=== PATIENT | male | born 1970 | race Caucasian/White ===

== ENCOUNTER 2017-08-27 05:19 | Day surgery (SDC) | payer OTHER ==
[~2017-08-27] VITALS: Ht 180.3 cm; Wt 95.0 kg
[~2017-08-27 05:19] MED LIST: CLOP75 PO; CeFAZolin 2 GM/DEXTROSE 50 ML IV ONE; GABA-531 PO; LIDOCAINE HCL/PF 1% 2 ML VIAL ID ONE; METO50 PO; OXYC20 PO; RINGERS SOLUTION,LACTATED 1,000 ML IV ONE; RINGERS SOLUTION,LACTATED 1,000 ML IV SCH; SERT100T12 PO
[2017-08-27] MEDS ORDERED: FentaNYL CITRATE-PF 100 MCG/2 ML VIAL IVP ONE (05:20)
[2017-08-27] MEDS ORDERED: DEXAMETHASONE SOD PHOS 4 MG/ML VIAL IVP ONE (05:20)
[2017-08-27] MEDS ORDERED: MIDAZOLAM HCL 2 MG/2 ML VIAL IVP ONE (05:20)
[2017-08-27] MEDS ORDERED: ONDANSETRON HCL 4 MG/2 ML VIAL IVP ONE (05:20)
[2017-08-27] MEDS ORDERED: PROPOFOL 1% 20 ML VIAL IVP ONE (05:20)
[2017-08-27] MEDS ORDERED: LIDOCAINE HCL/PF 2% 5 ML VIAL IM ONE (05:20)
[2017-08-27] MEDS ORDERED: SUCCINYLCHOLINE CHLORIDE 20 MG/ML 10 ML VIAL IVP ONE (05:20)
[2017-08-27] MEDS ORDERED: ROCURONIUM BROMIDE 10 MG/ML 5 ML VIAL IVP ONE (05:20)
[2017-08-27] MEDS ORDERED: RINGERS SOLUTION,LACTATED 1,000 ML IV SCH ×2 (05:30→07:00)
[2017-08-27 06:06] LABS: BASOPHILS % (AUTO) 0.3 % (0.0-2.0); HEMATOCRIT 41.8 % (41-53); HEMOGLOBIN 14.5 g/dL (13.5-17.5); LYMPHOCYTES # (AUTO) 2.3 K/uL (1.0-4.8); MEAN CORPUSCULAR HEMOGLOBIN 30.4 pg (26.0-34.0); MEAN CORPUSCULAR HGB CONC 34.8 G/dL (31.0-37.0); MEAN CORPUSCULAR VOLUME 87 fL (80-100); MONOCYTES # (AUTO) 0.9 K/uL (0.1-1.0); MONOCYTES % (AUTO) 7.9 % (2.0-9.0); NEUTROPHILS # (AUTO) 8.5 K/uL (1.8-7.7); NEUTROPHILS % (AUTO) 70.8 % (40.0-70.0); PLATELET COUNT (AUTO) 327 K/uL (150-450); RED BLOOD CELL COUNT(AUTO) 4.78 MIL/uL (4.50-5.90); RED CELL DISTRIBUTION WIDTH 14.4 % (11.5-14.5)
[2017-08-27 06:13] LABS: ANION GAP 7 mmol/L (8-16); CALCIUM, TOTAL 9.2 mg/dL (8.8-10.5); CARBON DIOXIDE 27 mmol/L (22-29); CHLORIDE 106 mmol/L (98-107); CREATININE 0.83 mg/dL (0.60-1.30); GLOMERULAR FILTR. RATE CALC > 60 mL/min (>60); GLUCOSE,RANDOM 222 mg/dL (70-110); POTASSIUM 4.4 mmol/L (3.5-5.1); SODIUM SERUM 140 mmol/L (136-145); UREA NITROGEN, BLOOD 9 mg/dL (7-18)
[2017-08-27 06:14] LABS: INR 0.9 (0.9-1.1); PROTHROMBIN TIME 9.4 SEC (9.4-11.6)
[2017-08-27] MEDS ORDERED: ACETAMINOPHEN 1000 MG/ISO-OSM 100 ML IV ONE (06:52)
[2017-08-27] MEDS ORDERED: ZOLPIDEM TARTRATE 5 MG TABLET PO PRN (07:00)
[2017-08-27] MEDS ORDERED: GABAPENTIN 300 MG CAPSULE PO ONE (07:00)
[2017-08-27] MEDS ORDERED: ACETAMINOPHEN 1000 MG/ISO-OSM 100 ML IV SCH (07:00)
[2017-08-27] MEDS ORDERED: BUPIVACAINE HCL/PF 0.5% 30 ML VIAL ONE (07:00)
[2017-08-27] MEDS ORDERED: LIDOCAINE HCL/PF 1% 2 ML VIAL ID ONE (07:00)
[2017-08-27] MEDS ORDERED: HYDROmorphone 2 MG/ML SYRINGE IVP PRN (07:00)
[2017-08-27] MEDS ORDERED: CeFAZolin 2 GM/DEXTROSE 50 ML IV ONE (07:00)
[2017-08-27] MEDS ORDERED: ONDANSETRON HCL 4 MG/2 ML VIAL IVP PRN (07:00)
[2017-08-27] MEDS ORDERED: MEPERIDINE-PF 25 MG/ML SYRINGE IVP PRN (07:00)
[2017-08-27] MEDS ORDERED: OxyCODONE HCL 10 MG IR TABLET PO ONE (07:00)
[2017-08-27] MEDS ORDERED: BUPIVACAINE LIPOSOME/PF 1.3%-13.3MG/ML SUSPENSION 20 ML VIAL INJ ONE (07:00)
[2017-08-27] MEDS ORDERED: SODIUM CL IRRIG SOLN BAG 3,000 ML IRRIG ONE (07:01)
[2017-08-27] MEDS ORDERED: OXYGEN THERAPY IH SCH (08:00)
[2017-08-27] MEDS ORDERED: VANCOMYCIN HCL 1 GM/VIAL ONE (08:41)
[2017-08-27] MEDS ORDERED: MICROFIBRILLAR COLLAGEN 1 GM PACKAGE TP ONE (08:41)
[2017-08-27] MEDS ORDERED: MUPIROCIN CALCIUM 2% 22 GM OINTMENT ONE (08:44)
[2017-08-27] MEDS ORDERED: GUM MASTIC/STORAX/MSAL/ALCOHOL LIQUID 0.67 ML VIAL TP ONE (08:44)
[2017-08-27] MEDS ORDERED: RINGERS SOLUTION,LACTATED 1,000 ML IV ONE (09:17)
[2017-08-27] MEDS ORDERED: ALBUTEROL SULFATE 2.5 MG/0.5 ML NEB SOLUTION NEB PRN (09:30)
[2017-08-27] MEDS ORDERED: IPRATROPIUM BROMIDE 0.5 MG/2.5 ML NEB SOLUTION NEB PRN (09:30)
[2017-08-27] MEDS ORDERED: HYDROmorphone 2 MG/ML SYRINGE ONE (09:51)
[2017-08-27 09:52] LABS: GLUCOMETER DEV NAME(LOC) SDS 5; GLUCOSE,POINT OF CARE 205 MG/DL (70-110)
[2017-08-27] MEDS ORDERED: ALBUTEROL SULFATE 2.5 MG/0.5 ML NEB SOLUTION NEB ONE (09:56)
[2017-08-27] MEDS ORDERED: IPRATROPIUM BROMIDE 0.5 MG/2.5 ML NEB SOLUTION NEB ONE (09:56)
[2017-08-27] MEDS: FentaNYL CITRATE-PF 100 MCG/2 ML VIAL IVP PRN ×4 (09:59→10:20)
[2017-08-27] MEDS ORDERED: FentaNYL CITRATE-PF 100 MCG/2 ML VIAL ONE ×2 (09:59→10:12)
[2017-08-27] MEDS: HYDROmorphone 2 MG/ML SYRINGE IVP PRN ×3 (10:25→10:44)
[2017-08-27] MEDS ORDERED: OxyCODONE HCL 20 MG ER TABLET PO ONE (10:30)
== END 2017-08-27 11:45 | disposition home or self-care (01) ==
LOC: SURGERY 05:19
PROVIDERS: ATTEND Orthopaedic Surgery
DX: S46.011A Strain of muscle(s) and tendon(s) of the rotator cuff of right shoulder, initial encounter (principal); M24.111 Other articular cartilage disorders, right shoulder; I10 Essential (primary) hypertension; I25.10 Atherosclerotic heart disease of native coronary artery without angina pectoris; E11.9 Type 2 diabetes mellitus without complications; G89.29 Other chronic pain; I25.2 Old myocardial infarction; F12.90 Cannabis use, unspecified, uncomplicated; Z98.890 Other specified postprocedural states; Z87.891 Personal history of nicotine dependence; Z95.5 Presence of coronary angioplasty implant and graft; Z86.74 Personal history of sudden cardiac arrest; Z79.01 Long term (current) use of anticoagulants; Z79.891 Long term (current) use of opiate analgesic; Z79.899 Other long term (current) drug therapy; X58.XXXA Exposure to other specified factors, initial encounter; Y93.89 Activity, other specified; Y92.89 Other specified places as the place of occurrence of the external cause; Y99.8 Other external cause status
CPT/HCPCS: 23550; 29824; 29826; 29827; 36415; 80048; 82962; 85025; 85610; 85730; 88304; 88311; 93005; 94640; C1713; C1768; C9290; J0131; J0330; J0690; J1100; J1170; J2250; J2405; J2704; J3010; J3370; J3490 ×3; J7120

== ENCOUNTER 2019-03-01 05:40 | Emergency (ER) | payer MEDICAID, OTHER ==
[~2019-03-01] VITALS: Ht 177.8 cm; Wt 86.4 kg
[~2019-03-01 05:40] MED LIST changes: -CLOP75 PO; +CLOP75TA3 PO; -CeFAZolin 2 GM/DEXTROSE 50 ML IV ONE; -LIDOCAINE HCL/PF 1% 2 ML VIAL ID ONE; -RINGERS SOLUTION,LACTATED 1,000 ML IV ONE; -RINGERS SOLUTION,LACTATED 1,000 ML IV SCH
[2019-03-01 05:47] VITALS: BP 144/91
[2019-03-01 06:06] LABS: GLUCOSE,POINT OF CARE 117 MG/DL (70-110)
[2019-03-01] MEDS ORDERED: SULFAMETHOX/TRIMETH DS 800-160 MG/TABLET PO ONE (08:00)
== END 2019-03-01 08:26 | disposition home or self-care (01) ==
LOC: EMS 05:42
DX: L03.113 Cellulitis of right upper limb (principal); I10 Essential (primary) hypertension; E11.9 Type 2 diabetes mellitus without complications; F11.90 Opioid use, unspecified, uncomplicated; F17.210 Nicotine dependence, cigarettes, uncomplicated; Z79.899 Other long term (current) drug therapy

== ENCOUNTER 2019-03-01 19:01 | Inpatient (IN) | payer MEDICAID ==
[~2019-03-01] VITALS: Ht 177.8 cm; Wt 94.0 kg
[2019-03-01 19:36] LABS: EOSINOPHILS % (AUTO) 2.6 % (1.0-6.0); HEMATOCRIT 46.3 % (41-53); HEMOGLOBIN 15.6 g/dL (13.5-17.5); LYMPHOCYTES % (AUTO) 23.3 % (22.0-44.0); MEAN CORPUSCULAR HEMOGLOBIN 30.4 pg (26.0-34.0); MEAN CORPUSCULAR HGB CONC 33.8 G/dL (31.0-37.0); MEAN CORPUSCULAR VOLUME 90 fL (80-100); MONOCYTES # (AUTO) 1.2 K/uL (0.1-1.0); MONOCYTES % (AUTO) 14.1 % (2.0-9.0); NEUTROPHILS # (AUTO) 5.1 K/uL (1.8-7.7); PLATELET COUNT (AUTO) 241 K/uL (150-450); RED BLOOD CELL COUNT(AUTO) 5.14 MIL/uL (4.50-5.90); RED CELL DISTRIBUTION WIDTH 13.5 % (11.5-14.5)
[2019-03-01 19:49] LABS: ANION GAP 7 mmol/L (8-16); CARBON DIOXIDE 31 mmol/L (22-29); CHLORIDE 104 mmol/L (98-107); CREATININE 0.87 mg/dL (0.60-1.30); GLOMERULAR FILTR. RATE CALC > 60 mL/min (>60); GLUCOSE,RANDOM 139 mg/dL (70-110); POTASSIUM 4.7 mmol/L (3.5-5.1); SODIUM SERUM 142 mmol/L (136-145); UREA NITROGEN, BLOOD 5 mg/dL (7-18)
[2019-03-01 19:55] LABS: ALANINE AMINOTRANSFERASE 13 U/L (12-78); ALBUMIN 3.9 g/dL (3.4-5.0); ALKALINE PHOSPHATASE 99 U/L (46-116); ASPARTATE AMINOTRANSFERASE 13 U/L (15-37); BILIRUBIN,TOTAL 0.7 mg/dL (0.1-1.0); TOTAL PROTEIN, SERUM 7.5 g/dL (6.4-8.2)
[2019-03-01] MEDS ORDERED: ASPIRIN 325 MG TABLET PO ONE (21:30)
[2019-03-01] MEDS ORDERED: 0.9% SODIUM CHLORIDE 10 ML SYRINGE IVP PRN (22:15)
[2019-03-01] MEDS ORDERED: ONDANSETRON HCL 4 MG/2 ML VIAL IVP PRN ×2 (22:15→23:45)
[2019-03-01] MEDS ORDERED: ACETAMINOPHEN 325 MG TABLET PO PRN ×2 (22:15→23:45)
[2019-03-01] MEDS ORDERED: HYDROCODONE/ACETAMINOPHEN 5-325 MG TABLET PO PRN (23:45)
[2019-03-01] MEDS ORDERED: MAGNESIUM HYDROXIDE SUSPENSION 30 ML UDCUP PO PRN (23:45)
[2019-03-01] MEDS ORDERED: IPRATROPIUM BROMIDE 0.5 MG/2.5 ML NEB SOLUTION NEB PRN (23:45)
[2019-03-01] MEDS ORDERED: ZOLPIDEM TARTRATE 10 MG TABLET PO PRN (23:45)
[2019-03-02 00:19] VITALS: BP 165/99
[2019-03-02] MEDS ORDERED: INFLUENZA VIRUS VACCINE QVS 2019-20 (3YR+)/PF 60 MCG/0.5 ML SYRINGE IM ONE (01:00)
[2019-03-02 01:10] LABS: BASOPHILS % (AUTO) 0.9 % (0.0-2.0); EOSINOPHILS % (AUTO) 3.4 % (1.0-6.0); HEMATOCRIT 45.6 % (41-53); HEMOGLOBIN 15.3 g/dL (13.5-17.5); LYMPHOCYTES # (AUTO) 2.2 K/uL (1.0-4.8); LYMPHOCYTES % (AUTO) 25.8 % (22.0-44.0); MEAN CORPUSCULAR HEMOGLOBIN 30.1 pg (26.0-34.0); MEAN CORPUSCULAR HGB CONC 33.5 G/dL (31.0-37.0); MEAN CORPUSCULAR VOLUME 90 fL (80-100); MONOCYTES # (AUTO) 1.1 K/uL (0.1-1.0); MONOCYTES % (AUTO) 13.5 % (2.0-9.0); NEUTROPHILS # (AUTO) 4.8 K/uL (1.8-7.7); NEUTROPHILS % (AUTO) 56.4 % (40.0-70.0); PLATELET COUNT (AUTO) 229 K/uL (150-450); RED BLOOD CELL COUNT(AUTO) 5.08 MIL/uL (4.50-5.90); RED CELL DISTRIBUTION WIDTH 13.6 % (11.5-14.5)
[2019-03-02] MEDS: NITROGLYCERIN 2% (1 GM=INCH) PACKET TP SCH ×4 (01:10→17:51)
[2019-03-02 01:18] LABS: ANION GAP 7 mmol/L (8-16); CARBON DIOXIDE 31 mmol/L (22-29); CHLORIDE 105 mmol/L (98-107); CREATININE 0.92 mg/dL (0.60-1.30); GLUCOSE,RANDOM 129 mg/dL (70-110); POTASSIUM 4.1 mmol/L (3.5-5.1); SODIUM SERUM 143 mmol/L (136-145); UREA NITROGEN, BLOOD 6 mg/dL (7-18)
[2019-03-02 01:19] LABS: CALCIUM, TOTAL 8.7 mg/dL (8.8-10.5); GLOMERULAR FILTR. RATE CALC > 60 mL/min (>60)
[2019-03-02 01:24] LABS: ALANINE AMINOTRANSFERASE 10 U/L (12-78); ALBUMIN 3.6 g/dL (3.4-5.0); ALKALINE PHOSPHATASE 93 U/L (46-116); ASPARTATE AMINOTRANSFERASE 12 U/L (15-37); BILIRUBIN,TOTAL 0.7 mg/dL (0.1-1.0)
[2019-03-02 04:16] VITALS: BP 124/87
[2019-03-02] MEDS: FAMOTIDINE 20 MG TABLET PO SCH ×2 (05:54→16:23)
[2019-03-02] MEDS: GABAPENTIN 300 MG CAPSULE PO SCH ×2 (05:54→08:05)
[2019-03-02] MEDS ORDERED: GABAPENTIN 300 MG CAPSULE PO SCH (06:00)
[2019-03-02] MEDS ORDERED: OxyCODONE HCL 20 MG ER TABLET PO SCH ×2 (06:00)
[2019-03-02 06:50] LABS: CHOL/HDL RATIO 7.7 (4.2-7.3)
[2019-03-02 07:16] VITALS: BP 130/75
[2019-03-02] MEDS: METOPROLOL TARTRATE 50 MG TABLET PO SCH (07:41)
[2019-03-02] MEDS: CEPHALEXIN MONOHYDRATE 500 MG CAPSULE PO SCH ×4 (08:05→20:33)
[2019-03-02] MEDS: ASPIRIN 81 MG CHEWABLE TABLET PO SCH (08:05)
[2019-03-02] MEDS: DOCUSATE SODIUM 100 MG CAPSULE PO SCH ×2 (08:05→20:33)
[2019-03-02] MEDS: CLOPIDOGREL BISULFATE 75 MG TABLET PO SCH (08:05)
[2019-03-02 11:27] VITALS: BP 146/75
[2019-03-02 12:01] LABS: GLUCOMETER DEV NAME(LOC) 5S.1; GLUCOSE,POINT OF CARE 138 MG/DL (70-110)
[2019-03-02] MEDS: MORPHINE SULFATE 2 MG/ML SYRINGE IVP PRN ×2 (12:34→17:33)
[2019-03-02 15:52] LABS: AMPHET/METH SCREEN,URINE NEGATIVE (NEGATIVE); BARBITURATE SCREEN, URINE NEGATIVE (NEGATIVE); BENZODIAZEPINES SCREEN,URINE POSITIVE (NEGATIVE); CANNABINOID SCREEN,URINE POSITIVE (NEGATIVE); COCAINE SCREEN,URINE NEGATIVE (NEGATIVE); METHADONE SCREEN, URINE NEGATIVE (NEGATIVE); OPIATE SCREEN,URINE POSITIVE (NEGATIVE); PHENCYCLIDINE SCREEN,URINE NEGATIVE (NEGATIVE)
[2019-03-02 16:44] VITALS: BP 123/71
[2019-03-02 19:46] VITALS: BP 137/64
[2019-03-02] MEDS: SERTRALINE HCL 100 MG TABLET PO SCH (20:33)
[2019-03-03] VITALS (8 sets, daily range): BP systolic 114–156; BP diastolic 76–98
[2019-03-03] MEDS: NITROGLYCERIN 2% (1 GM=INCH) PACKET TP SCH ×5 (00:24→23:26)
[2019-03-03] MEDS: MORPHINE SULFATE 2 MG/ML SYRINGE IVP PRN ×5 (00:25→20:16)
[2019-03-03] MEDS ORDERED: CloNIDine HCL 0.1 MG TABLET PO PRN (05:00)
[2019-03-03] MEDS ORDERED: HydrOXYzine PAMOATE 50 MG CAPSULE PO PRN (05:00)
[2019-03-03] MEDS ORDERED: MAG HYDROX/AL HYDROX/SIMETH ES 30 ML SUSPENSION UDCUP PO PRN (05:00)
[2019-03-03] MEDS: CloNIDine HCL 0.1 MG TABLET PO SCH ×4 (05:47→22:02)
[2019-03-03] MEDS: FAMOTIDINE 20 MG TABLET PO SCH ×2 (06:08→17:07)
[2019-03-03 06:42] LABS: BASOPHILS % (AUTO) 0.6 % (0.0-2.0); EOSINOPHILS % (AUTO) 1.8 % (1.0-6.0); HEMATOCRIT 48.8 % (41-53); HEMOGLOBIN 16.5 g/dL (13.5-17.5); LYMPHOCYTES # (AUTO) 1.7 K/uL (1.0-4.8); LYMPHOCYTES % (AUTO) 20.5 % (22.0-44.0); MEAN CORPUSCULAR HEMOGLOBIN 30.4 pg (26.0-34.0); MEAN CORPUSCULAR HGB CONC 33.8 G/dL (31.0-37.0); MEAN CORPUSCULAR VOLUME 90 fL (80-100); MONOCYTES % (AUTO) 12.1 % (2.0-9.0); NEUTROPHILS # (AUTO) 5.2 K/uL (1.8-7.7); PLATELET COUNT (AUTO) 238 K/uL (150-450); RED BLOOD CELL COUNT(AUTO) 5.43 MIL/uL (4.50-5.90); RED CELL DISTRIBUTION WIDTH 13.5 % (11.5-14.5)
[2019-03-03 07:14] LABS: ALANINE AMINOTRANSFERASE 15 U/L (12-78); ALBUMIN 3.9 g/dL (3.4-5.0); ALKALINE PHOSPHATASE 99 U/L (46-116); ANION GAP 7 mmol/L (8-16); ASPARTATE AMINOTRANSFERASE 12 U/L (15-37); BILIRUBIN,TOTAL 0.9 mg/dL (0.1-1.0); CALCIUM, TOTAL 9.6 mg/dL (8.8-10.5); CARBON DIOXIDE 29 mmol/L (22-29); CHLORIDE 104 mmol/L (98-107); CREATININE 0.84 mg/dL (0.60-1.30); GLOMERULAR FILTR. RATE CALC > 60 mL/min (>60); GLUCOSE,RANDOM 117 mg/dL (70-110); POTASSIUM 4.3 mmol/L (3.5-5.1); SODIUM SERUM 140 mmol/L (136-145); TOTAL PROTEIN, SERUM 7.7 g/dL (6.4-8.2)
[2019-03-03 07:33] LABS: UREA NITROGEN, BLOOD 12 mg/dL (7-18)
[2019-03-03 07:35] LABS: B-TYPE NATRIURETIC PEPTIDE 7 pg/mL (0-100)
[2019-03-03] MEDS: METOPROLOL TARTRATE 50 MG TABLET PO SCH (07:56)
[2019-03-03] MEDS: CEPHALEXIN MONOHYDRATE 500 MG CAPSULE PO SCH ×4 (07:56→20:15)
[2019-03-03] MEDS: DOCUSATE SODIUM 100 MG CAPSULE PO SCH ×2 (07:56→20:16)
[2019-03-03] MEDS: CLOPIDOGREL BISULFATE 75 MG TABLET PO SCH (07:56)
[2019-03-03] MEDS: GABAPENTIN 300 MG CAPSULE PO SCH (07:56)
[2019-03-03] MEDS: ASPIRIN 81 MG CHEWABLE TABLET PO SCH (07:56)
[2019-03-03] MEDS ORDERED: ATORVASTATIN CALCIUM 20 MG TABLET PO SCH (09:00)
[2019-03-03] MEDS: SERTRALINE HCL 100 MG TABLET PO SCH (20:15)
[2019-03-04] VITALS (7 sets, daily range): BP systolic 105–140; BP diastolic 60–76
[2019-03-04] MEDS: MORPHINE SULFATE 2 MG/ML SYRINGE IVP PRN ×5 (02:24→21:29)
[2019-03-04] MEDS: CloNIDine HCL 0.1 MG TABLET PO SCH ×4 (05:57→21:30)
[2019-03-04] MEDS: NITROGLYCERIN 2% (1 GM=INCH) PACKET TP SCH ×3 (05:58→17:22)
[2019-03-04] MEDS: FAMOTIDINE 20 MG TABLET PO SCH ×2 (06:19→17:21)
[2019-03-04] MEDS: METOPROLOL TARTRATE 50 MG TABLET PO SCH (08:17)
[2019-03-04] MEDS: ATORVASTATIN CALCIUM 40 MG TABLET PO SCH (08:17)
[2019-03-04] MEDS: CEPHALEXIN MONOHYDRATE 500 MG CAPSULE PO SCH ×4 (08:18→21:29)
[2019-03-04] MEDS: CLOPIDOGREL BISULFATE 75 MG TABLET PO SCH (08:18)
[2019-03-04] MEDS: ASPIRIN 81 MG CHEWABLE TABLET PO SCH (08:20)
[2019-03-04] MEDS: DOCUSATE SODIUM 100 MG CAPSULE PO SCH ×2 (08:20→21:00)
[2019-03-04] MEDS: GABAPENTIN 300 MG CAPSULE PO SCH (08:21)
[2019-03-04] MEDS: IPRATROPIUM BROMIDE 0.5 MG/2.5 ML NEB SOLUTION NEB SCH (20:15)
[2019-03-04] MEDS: ALBUTEROL SULFATE 2.5 MG/0.5 ML NEB SOLUTION NEB SCH (20:15)
[2019-03-04] MEDS: SERTRALINE HCL 100 MG TABLET PO SCH (21:29)
[2019-03-04] MEDS ORDERED: TICAGRELOR 90 MG TABLET PO ONE (21:30)
[2019-03-05] VITALS (13 sets, daily range): BP systolic 110–168; BP diastolic 82–105
[2019-03-05] MEDS: ALBUTEROL SULFATE 2.5 MG/0.5 ML NEB SOLUTION NEB SCH ×4 (02:25→20:00)
[2019-03-05] MEDS: IPRATROPIUM BROMIDE 0.5 MG/2.5 ML NEB SOLUTION NEB SCH ×4 (02:25→20:00)
[2019-03-05] MEDS: MORPHINE SULFATE 2 MG/ML SYRINGE IVP PRN ×3 (02:44→22:44)
[2019-03-05] MEDS: NITROGLYCERIN 2% (1 GM=INCH) PACKET TP SCH ×4 (06:00→18:07)
[2019-03-05] MEDS: CloNIDine HCL 0.1 MG TABLET PO SCH ×4 (06:00→22:33)
[2019-03-05] MEDS: POTASSIUM CHLORIDE IV SCH ×2 (06:05→22:33)
[2019-03-05] MEDS: SODIUM CHL IV SCH ×2 (06:05→22:33)
[2019-03-05] MEDS: DEXTROSE IV SCH ×2 (06:05→22:33)
[2019-03-05] MEDS: FAMOTIDINE 20 MG TABLET PO SCH ×2 (06:07→17:49)
[2019-03-05 06:15] LABS: BASOPHILS % (AUTO) 0.8 % (0.0-2.0); EOSINOPHILS % (AUTO) 1.6 % (1.0-6.0); HEMATOCRIT 47.8 % (41-53); HEMOGLOBIN 16.3 g/dL (13.5-17.5); LYMPHOCYTES # (AUTO) 2.2 K/uL (1.0-4.8); LYMPHOCYTES % (AUTO) 25.4 % (22.0-44.0); MEAN CORPUSCULAR HEMOGLOBIN 30.6 pg (26.0-34.0); MEAN CORPUSCULAR VOLUME 90 fL (80-100); MONOCYTES # (AUTO) 0.8 K/uL (0.1-1.0); MONOCYTES % (AUTO) 9.7 % (2.0-9.0); NEUTROPHILS # (AUTO) 5.4 K/uL (1.8-7.7); NEUTROPHILS % (AUTO) 62.5 % (40.0-70.0); PLATELET COUNT (AUTO) 206 K/uL (150-450); RED BLOOD CELL COUNT(AUTO) 5.31 MIL/uL (4.50-5.90); RED CELL DISTRIBUTION WIDTH 13.6 % (11.5-14.5)
[2019-03-05 06:32] LABS: ANION GAP 8 mmol/L (8-16); CALCIUM, TOTAL 9.4 mg/dL (8.8-10.5); CARBON DIOXIDE 29 mmol/L (22-29); CHLORIDE 103 mmol/L (98-107); CREATININE 0.82 mg/dL (0.60-1.30); GLOMERULAR FILTR. RATE CALC > 60 mL/min (>60); GLUCOSE,RANDOM 135 mg/dL (70-110); POTASSIUM 4.3 mmol/L (3.5-5.1); SODIUM SERUM 140 mmol/L (136-145); UREA NITROGEN, BLOOD 13 mg/dL (7-18)
[2019-03-05] MEDS: METOPROLOL TARTRATE 50 MG TABLET PO SCH (07:45)
[2019-03-05] MEDS: ASPIRIN 81 MG CHEWABLE TABLET PO SCH (07:47)
[2019-03-05] MEDS: CEPHALEXIN MONOHYDRATE 500 MG CAPSULE PO SCH ×4 (07:48→20:37)
[2019-03-05] MEDS: GABAPENTIN 300 MG CAPSULE PO SCH (07:48)
[2019-03-05] MEDS: DOCUSATE SODIUM 100 MG CAPSULE PO SCH ×2 (07:48→20:36)
[2019-03-05] MEDS: ATORVASTATIN CALCIUM 40 MG TABLET PO SCH (07:48)
[2019-03-05] MEDS ORDERED: SODIUM BICARBONATE 50 MEQ/50 ML VIAL ONE (11:51)
[2019-03-05] MEDS ORDERED: HEPARIN SODIUM 1000 UNITS/NS 1,000 ML ONE (11:51)
[2019-03-05] MEDS ORDERED: IOHEXOL 300 MG/ML 100 ML VIAL ONE ×2 (11:51→12:59)
[2019-03-05] MEDS ORDERED: LIDOCAINE/PF 1% 30 ML VIAL ONE (11:51)
[2019-03-05] MEDS ORDERED: SODIUM CHLORIDE 0.9% 500 ML IV ONE (12:23)
[2019-03-05] MEDS ORDERED: MIDAZOLAM HCL 2 MG/2 ML VIAL ONE ×3 (12:30→12:57)
[2019-03-05] MEDS ORDERED: FentaNYL CITRATE-PF 100 MCG/2 ML VIAL ONE ×2 (12:30→12:56)
[2019-03-05] MEDS ORDERED: LIDOCAINE 1% 30 ML/SOD BICARB 8.4% 4 ML SQ ONE (12:30)
[2019-03-05] MEDS ORDERED: HEPARIN SODIUM 1000 UNITS/NS 1,000 ML IARTER ONE ×2 (12:36→12:39)
[2019-03-05] MEDS ORDERED: IOHEXOL 300 MG/ML 50 ML VIAL IARTER ONE (12:39)
[2019-03-05] MEDS ORDERED: IOHEXOL 300 MG/ML 100 ML VIAL IARTER ONE (12:39)
[2019-03-05] MEDS ORDERED: IOHEXOL 300 MG/ML 150 ML VIAL IARTER ONE (12:39)
[2019-03-05] MEDS ORDERED: HEPARIN SODIUM,PORCINE 1,000 UNITS/ML 10 ML VIAL ONE (12:57)
[2019-03-05] MEDS ORDERED: NITROGLYCERIN 50 MG/D5% WATER 250 ML ONE (12:57)
[2019-03-05] MEDS ORDERED: IOHEXOL 300 MG/ML 50 ML VIAL ONE ×2 (12:59→13:48)
[2019-03-05] MEDS ORDERED: TICAGRELOR 90 MG TABLET PO ONE (12:59)
[2019-03-05] MEDS ORDERED: TICAGRELOR 90 MG TABLET ONE (13:01)
[2019-03-05] MEDS ORDERED: NITROGLYCERIN/D5W 50 MG/250 ML IV BOTTLE ICOR ONE ×3 (13:05→13:24)
[2019-03-05] MEDS ORDERED: VERAPAMIL HCL 2.5 MG/ML 2 ML VIAL ICOR ONE ×3 (13:06→13:24)
[2019-03-05] MEDS ORDERED: HEPARIN SODIUM,PORCINE 5,000 UNITS/ML VIAL IVP ONE ×2 (13:30→18:45)
[2019-03-05] MEDS ORDERED: HEPARIN SODIUM 1000 UNITS/NS 500 ML ONE (13:40)
[2019-03-05] MEDS ORDERED: MIDAZOLAM HCL 2 MG/2 ML VIAL IVP ONE (13:59)
[2019-03-05] MEDS ORDERED: FentaNYL CITRATE-PF 100 MCG/2 ML VIAL IVP ONE (13:59)
[2019-03-05] MEDS: SERTRALINE HCL 100 MG TABLET PO SCH (20:36)
[2019-03-05] MEDS: TICAGRELOR 90 MG TABLET PO SCH (20:36)
[2019-03-05] MEDS ORDERED: ZOLPIDEM TARTRATE 5 MG TABLET PO PRN (21:46)
[2019-03-06] MEDS: NITROGLYCERIN 2% (1 GM=INCH) PACKET TP SCH ×2 (00:09→06:42)
[2019-03-06 00:29] VITALS: BP 140/89
[2019-03-06] MEDS: ALBUTEROL SULFATE 2.5 MG/0.5 ML NEB SOLUTION NEB SCH ×2 (02:00→07:29)
[2019-03-06] MEDS: IPRATROPIUM BROMIDE 0.5 MG/2.5 ML NEB SOLUTION NEB SCH ×2 (02:00→07:29)
[2019-03-06 04:42] VITALS: BP 122/67
[2019-03-06] MEDS: CloNIDine HCL 0.1 MG TABLET PO SCH (06:41)
[2019-03-06] MEDS: FAMOTIDINE 20 MG TABLET PO SCH (06:42)
[2019-03-06 07:41] LABS: ANION GAP 7 mmol/L (8-16); CALCIUM, TOTAL 8.8 mg/dL (8.8-10.5); CARBON DIOXIDE 29 mmol/L (22-29); CHLORIDE 106 mmol/L (98-107); CREATININE 0.74 mg/dL (0.60-1.30); GLOMERULAR FILTR. RATE CALC > 60 mL/min (>60); GLUCOSE,RANDOM 143 mg/dL (70-110); POTASSIUM 4.3 mmol/L (3.5-5.1); SODIUM SERUM 142 mmol/L (136-145); UREA NITROGEN, BLOOD 9 mg/dL (7-18)
[2019-03-06 08:11] VITALS: BP 137/93
[2019-03-06] MEDS: METOPROLOL TARTRATE 50 MG TABLET PO SCH (09:39)
[2019-03-06] MEDS: GABAPENTIN 300 MG CAPSULE PO SCH (09:39)
[2019-03-06] MEDS: ASPIRIN 81 MG CHEWABLE TABLET PO SCH (09:39)
[2019-03-06] MEDS: TICAGRELOR 90 MG TABLET PO SCH (09:39)
[2019-03-06] MEDS: ATORVASTATIN CALCIUM 40 MG TABLET PO SCH (09:40)
[2019-03-06] MEDS: CEPHALEXIN MONOHYDRATE 500 MG CAPSULE PO SCH (09:40)
[2019-03-06] MEDS: DOCUSATE SODIUM 100 MG CAPSULE PO SCH (09:40)
[2019-03-06] MEDS: MORPHINE SULFATE 2 MG/ML SYRINGE IVP PRN (09:44)
[2019-03-06] MEDS ORDERED: TICA60TA PO (11:01)
[2019-03-06] MEDS ORDERED: TICA90TA PO (11:02)
[2019-03-06] MEDS ORDERED: ATOR40TA28 PO (11:03)
[2019-03-06] MEDS ORDERED: ASPI81TA39 PO (11:05)
[2019-03-06] MEDS ORDERED: METO25 PO (11:05)
== END 2019-03-06 12:00 | disposition home or self-care (01) | DRG 175 ==
LOC: EMS 19:02 → 5S 22:37 → ICU 03-05 14:40 → 5S 03-05 21:40
PROVIDERS: ADMIT Hospitalist; ATTEND Hospitalist
PROC: 4A023N7 Measurement of Cardiac Sampling and Pressure, Left Heart, Percutaneous Approach (ICD-10-PCS; principal; 2019-03-05)
PROC: 027135Z Dilation of Coronary Artery, Two Arteries with Two Drug-eluting Intraluminal Devices, Percutaneous Approach (ICD-10-PCS; 2019-03-05)
PROC: B2111ZZ Fluoroscopy of Multiple Coronary Arteries using Low Osmolar Contrast (ICD-10-PCS; 2019-03-05)
DX: T82.855A Stenosis of coronary artery stent, initial encounter (principal); I25.110 Atherosclerotic heart disease of native coronary artery with unstable angina pectoris; E11.9 Type 2 diabetes mellitus without complications; E78.5 Hyperlipidemia, unspecified; L03.113 Cellulitis of right upper limb; F17.210 Nicotine dependence, cigarettes, uncomplicated; F32.9 Major depressive disorder, single episode, unspecified; I10 Essential (primary) hypertension; G89.29 Other chronic pain; J44.9 Chronic obstructive pulmonary disease, unspecified; Z79.02 Long term (current) use of antithrombotics/antiplatelets; Z95.5 Presence of coronary angioplasty implant and graft; Z79.899 Other long term (current) drug therapy; I25.2 Old myocardial infarction; Z59.0 Homelessness; Z91.19 Patient's noncompliance with other medical treatment and regimen; Z83.3 Family history of diabetes mellitus; Z82.49 Family history of ischemic heart disease and other diseases of the circulatory system
CPT/HCPCS: 80307; 83735; 87081; 92920; 92921; 92928; 92929; 93005; 93306; 93308; 94640; 96374; J1644; J2250; J2270; J3010; J3480; J3490; Q9967